=== PATIENT | female | born 1980 | race African-American/Black ===

== ENCOUNTER 2017-06-30 06:42 | Inpatient (IN) | payer MEDICARE, MEDICAID ==
[2017-06-30] MEDS ORDERED: Methocarbamol 1 GM in Sodium Chloride 0.9% 100 ML IVPB SCH (07:15)
[2017-06-30 07:30] LABS: #Basophils 0.1 thou/uL (0.0-0.2); #Eosinphils 0.1 thou/uL (0.0-0.7); #Lymphocytes 4.6 thou/uL (1.20-3.40); #Monocytes 1.3 thou/uL (0.11-0.59); #Neutrophils 6.4 thou/uL (1.40-6.50); %Basophils 1.2 % (0.0-1.0); %Eosinophils 0.9 % (0.0-10.0); %Lymphocytes 36.7 % (21.0-51.0); %Monocytes 10.3 % (0.0-10.0); Hematocrit 44.6 % (36.0-47.0); Mean Platelet Volume 8.6 fL (7.4-10.4); Red Blood Cell (RBC) Count 4.65 mill/uL (4.20-5.40); White Blood Cell (WBC) Count 12.6 thou/uL (4.8-10.8)
[2017-06-30 07:44] LABS: Anion Gap 21 mmol/L (10-20); BUN (Urea Nitrogen) 11 mg/dL (7.0-18.7); Calc. Creatinine Clearance 0 mL/min (70-130); Calcium 8.7 mg/dL (7.8-10.44); Carbon Dioxide 18 mmol/L (22-29); Chloride 94 mmol/L (98-107); Estimated GFR-MDRD 40
[2017-06-30] MEDS ORDERED: Insulin Regular 300 UNITS/3 ML VIAL ONE (09:26)
[2017-06-30] MEDS ORDERED: Acetaminophen 500 MG TAB ONE (09:28)
[2017-06-30] MEDS ORDERED: Sodium Chloride 0.9% 1,000 ML IV PRN ×4 (12:08)
[2017-06-30] MEDS ORDERED: CCU Electrolyte Replacement 1 EACH IVPB ONE (12:08)
[2017-06-30] MEDS ORDERED: NS 0.9% w/ 20 MEQ KCL 1,000 ML IV PRN (12:08)
[2017-06-30] MEDS ORDERED: D5 1/2 NS w/20 mEq KCL 1,000 ML IV PRN (12:08)
[2017-06-30] MEDS ORDERED: Dextrose 5 %-0.45 % NaCl 1,000 ML IV PRN (12:08)
[2017-06-30] MEDS ORDERED: Cyclobenzaprine 10 MG TAB PO PRN (12:14)
[2017-06-30] MEDS ORDERED: Potassium Chloride 40 MEQ in Premix Bag 1 BAG IVPB PRN (12:18)
[2017-06-30] MEDS ORDERED: Magnesium 2 GM/NS 0.9% 100 ML 2 GM in Premix Bag 1 BAG IVPB PRN (12:18)
[2017-06-30] MEDS ORDERED: Potassium Chloride 20 MEQ TAB PO PRN (12:18)
[2017-06-30] MEDS ORDERED: Potassium Phosphate 9 MMOL in Sodium Chloride 0.9% 100 ML IVPB PRN (12:18)
[2017-06-30] MEDS ORDERED: CCU ELECTROLYTE REPLACEMENT PROTOCOL FS PRN (12:18)
[2017-06-30] MEDS ORDERED: Potassium Phosphate 12 MMOL in Sodium Chloride 0.9% 250 ML 250 ML IV PRN (12:18)
[2017-06-30] MEDS ORDERED: Potassium Chloride 40 MEQ in Sodium Chloride 0.9% 250 ML 250 ML IVPB PRN (12:18)
[2017-06-30] MEDS ORDERED: Potassium Phosphate 15 MMOL in Sodium Chloride 0.9% 250 ML 250 ML IV PRN (12:18)
[2017-06-30] MEDS ORDERED: Magnesium Oxide 400 MG TAB PO PRN ×2 (12:18)
[2017-06-30 13:11] LABS: Anion Gap 17 mmol/L (10-20); BUN (Urea Nitrogen) 9 mg/dL (7.0-18.7); Calc. Creatinine Clearance 0 mL/min (70-130); Calcium 8.9 mg/dL (7.8-10.44); Carbon Dioxide 21 mmol/L (22-29); Chloride 97 mmol/L (98-107); Estimated GFR-MDRD 44
[2017-06-30] MEDS: NS 0.9% w/ 20 MEQ KCL 1,000 ML IV PRN ×2 (13:39→15:33)
[2017-06-30 13:49] VITALS: BMI 54.8
[2017-06-30] MEDS: Heparin 5,000 UNITS/ML VIAL SC SCH ×2 (15:33→21:08)
[2017-06-30 17:03] LABS: Anion Gap 11 mmol/L (10-20); BUN (Urea Nitrogen) 8 mg/dL (7.0-18.7); Calc. Creatinine Clearance 123 mL/min (70-130); Calcium 8.3 mg/dL (7.8-10.44); Carbon Dioxide 25 mmol/L (22-29); Chloride 101 mmol/L (98-107); Estimated GFR-MDRD 54
[2017-06-30 17:52] LABS: Hemoglobin A1c 20.1 % (4.0-6.0)
--- NOTE | 2017-06-30 18:15 | HP ---
PRIMARY CARE PHYSICIAN: Stephen Vicente M.D. CHIEF COMPLAINT: Polydipsia. HISTORY OF PRESENT ILLNESS: Ms. Graham is a pleasant 37-year-old lady who was seen at [facility] on 06/30/2017. She was hospitalized at this facility in 04/2017 for diabetes mellitus. She was started on insulin. However, she reported that because of her insurance reasons , she could not get her insulin. She also could not get her Synthroid. She has not been taking the se two medications following discharge. For the last several days, she reports excessive thirst. She also reports frequent urination. She also reports increase in her appetite. She denies any chest pain. She denies any shortness of chiara th. She denies any fevers or chills. She denies any dysuria. She also reports chronic back pain, on and off, 05/24 at its worst. No known aggravating or relievin g factors, not associated with any other symptoms. REVIEW OF SYSTEMS: The following complete review of systems was negative, unless otherwise mentione d in the HPI or below: Constitutional: Weight loss or gain, sense of well-being, ability to conduct usual activities, exer cise tolerance. Skin/Breast: Rash, itching, changes in hair growth or loss, nail changes, breast lumps, tenderness, swelling, nipple discharge. Eyes: Vision, double vision, tearing, blind spots, pain. ENT/Mouth: Headaches (location, time of onset, duration, precipitating factors), vertigo, lighthead edness, injury. Vision, double vision, tearing, blind spots, pain, nose bleeding, colds, obstruction , discharge, dental difficulties, gingival bleeding, dentures, neck stiffness, pain, tenderness, mas ses in thyroid or other areas. Cardiovascular: Precordial pain, substernal distress, palpitations, syncope, dyspnea on exertion, o rthopnea, nocturnal paroxysmal dyspnea, edema, cyanosis, hypertension, heart murmurs, varicosities, phlebitis, claudication. Respiratory: Pain, shortness of breath, wheezing, stridor, cough, hemoptysis, fever or night sweats . Gastrointestinal: Poor appetite, dysphagia, indigestion, abdominal pain, heartburn, eructation, carlos sea, vomiting, hematemesis, jaundice, constipation, or diarrhea, abnormal stools (margaret-colored, kennedy y, bloody, greasy, foul smelling), flatulence, hemorrhoids, recent changes in bowel habits. Genitourinary: Urgency, frequency, dysuria, nocturia, hematuria, polyuria, oliguria, unusual (or ch goran in) color of urine, stones, hesitancy, change in size of stream, dribbling, acute retention or incontinence, libido, potency. Musculoskeletal: Pain, swelling, redness or heat of muscles or joints, limitation, of motion, muscu lar weakness, atrophy, cramps. Neurologic/Psychiatric: Convulsions, paralyses, tremor, incoordination, paresthesias, difficulties with memory of speech, sensory or motor disturbances, or muscular coordination (ataxia, tremor), emo tional problems, anxiety, depression, previous psychiatric care, unusual perceptions, hallucinations . Allergy/Immunologic: Skin rash, anemia, bleeding tendency, polydipsia, polyuria, intolerance to hea t or cold. PAST MEDICAL HISTORY: Significant for hypothyroidism, hypertension, obesity, asthma and diabetes me llitus. PAST SURGICAL HISTORY: Significant for section, thyroidectomy and partial hysterectomy. PSYCHIATRIC HISTORY: Significant for anxiety. SOCIAL HISTORY: The patient uses marijuana. She also smokes less than half a pack of cigarettes a day. She denies alcohol use. FAMILY HISTORY: Significant for multiple members with diabetes mellitus. ALLERGIES: No known drug allergies. CURRENT MEDICATIONS: Irbesartan/hydrochlorothiazide 150/12.5 mg daily, topiramate 50 mg 2 times a d ay, Levemir 25 units subcutaneously daily, which she has not been taking, levothyroxine 50 mcg daily , which she has not been taking. PHYSICAL EXAMINATION: GENERAL: Ms. Graham is awake and alert, not in acute distress. VITAL SIGNS: Blood pressure is 151/119. Pulse is 77. She is breathing at rate of 18, and saturati ng 96% on room air. She is afebrile. She is morbidly obese. EYES: No scleral icterus. No conjunctival pallor. ENT: Dry mucosal membranes, no oropharyngeal erythema or exudates. NECK: Supple, nontender, normal range of movement, trachea is midline. RESPIRATORY: Accessory muscles of breathing are not active. Chest wall movements are symmetric vinayak aterally. LUNGS: Clear to auscultation without wheeze, rhonchi or crepitations. CARDIOVASCULAR: S1 and S2 are heard, regular. LUNGS: Peripheral pulses palpable. No carotid bruit, no pericardial rub. ABDOMEN: Soft, distended, nontender, bowel sounds heard, no hepatomegaly, no splenomegaly. NEUROLOGIC: Cranial nerves II-XII are intact. Deep tendon reflexes are 2+. MUSCULOSKELETAL: Power is 5/5 in all 4 extremities. Normal range of movements at all major extremi ty joints. LYMPHATIC: No cervical lymphadenopathy. SKIN: No rashes or subcutaneous nodules. PSYCHIATRIC: Normal mood, normal affect, patient is oriented to person, place, and time. LABS AND INVESTIGATIONS: Ms. Graham's labs and investigations were reviewed. She has decreased s odium of 129, decreased carbon dioxide of 18, elevated anion gap of 21, elevated creatinine of 1.71, elevated glucose of 678, elevated white count of 12,600, of which 50.9% are neutrophils, normal he moglobin, normal platelet count, and elevated beta hydroxybutyrate of 5.86. ASSESSMENT AND PLAN: Ms. Graham is a pleasant 37-year-old lady who was seen at [facility]. Her problem list includes: 1. Diabetic ketoacidosis. Ms. Graham is currently in diabetic ketoacidosis from noncompliance wi th insulin. She will be admitted to the hospital and treated with intravenous fluids and insulin. 2. Hypertensive urgency: Ms. Graham has elevated blood pressure. She will be monitored in terms of vital signs. She will receive p.r.n. medications for control of blood pressure. 3. Hypothyroidism: Resume Synthroid. She will need to follow up with her primary care provider radha youngblood having her thyroid profile checked. 4. Tobacco abuse: The patient has been counseled regarding tobacco cessation. She will be started on nicotine replacement therapy. 5. Marijuana use: The patient has been counseled regarding cessation of marijuana use. Many thanks for allowing me to participate in your patient's care. Please feel free to contact me w ith any questions or concerns. LEVEL OF RISK: Moderate. LEVEL OF COMPLEXITY: Moderate.
[2017-06-30 20:45] LABS: Anion Gap 9 mmol/L (10-20); BUN (Urea Nitrogen) 7 mg/dL (7.0-18.7); Calc. Creatinine Clearance 149 mL/min (70-130); Carbon Dioxide 24 mmol/L (22-29); Chloride 102 mmol/L (98-107); Estimated GFR-MDRD 67
[2017-06-30] MEDS ORDERED: Dextrose 5% in Water 1,000 ML IV PRN (20:47)
[2017-06-30] MEDS ORDERED: Dextrose 50% Abboject 50 ML SYRINGE IVP PRN (20:47)
[2017-06-30] MEDS ORDERED: Potassium Chloride 20 MEQ TAB PO SCH (21:00)
[2017-06-30] MEDS ORDERED: FLU VACC QS2017-18 36 mo. & older 0.5 ML SYRINGE IM ONE (21:00)
[2017-06-30] MEDS ORDERED: INSULIN GLARGINE HUM REC ANLOG 25 UNIT SQ SCH (21:00)
[2017-06-30] MEDS ORDERED: Insulin Regular 300 UNITS/3 ML VIAL SC SCH (21:00)
[2017-06-30] MEDS: Famotidine 20 MG TAB PO SCH (21:08)
[2017-06-30] MEDS: Insulin Detemir 100 UNITS/ML 25 UNITS in Pre-Filled Syringe SC SCH (21:09)
[2017-06-30] MEDS: Topiramate 100 MG TAB PO SCH (21:10)
[2017-06-30] MEDS: Acetaminophen 325 MG TAB PO PRN (21:10)
[2017-06-30] MEDS: Sodium Chloride 0.9% 1,000 ML IV SCH (21:10)
[2017-06-30 22:13] LABS: Bilirubin Moderate (Negative); Blood, Urine Negative (Negative); Glucose, Urine (Dipstick) 500 mg/dL (Negative); Ketone, Urine 15 mg/dL (Negative); Nitrite Negative (Negative); Protein, Urine (Dipstick) 30 mg/dL (Neg-Trace)
[2017-06-30] MEDS: Insulin Regular 300 UNITS/3 ML VIAL SC PRN (23:55)
[2017-07-01] MEDS: Insulin Regular 300 UNITS/3 ML VIAL SC PRN (05:48)
[2017-07-01] MEDS: Levothyroxine Sodium 125 MCG TAB PO SCH (05:48)
[2017-07-01 06:07] LABS: #Basophils 0.2 thou/uL (0.0-0.2); #Eosinphils 0.2 thou/uL (0.0-0.7); #Lymphocytes 5.3 thou/uL (1.20-3.40); #Monocytes 1.3 thou/uL (0.11-0.59); #Neutrophils 4.9 thou/uL (1.40-6.50); %Basophils 1.8 % (0.0-1.0); %Eosinophils 1.4 % (0.0-10.0); %Lymphocytes 44.6 % (21.0-51.0); %Monocytes 11.1 % (0.0-10.0); Hematocrit 41.3 % (36.0-47.0); Mean Platelet Volume 8.6 fL (7.4-10.4); Red Blood Cell (RBC) Count 4.28 mill/uL (4.20-5.40)
[2017-07-01 06:39] LABS: Anion Gap 9 mmol/L (10-20); BUN (Urea Nitrogen) 7 mg/dL (7.0-18.7); Calc. Creatinine Clearance 155 mL/min (70-130); Calcium 8.3 mg/dL (7.8-10.44); Carbon Dioxide 24 mmol/L (22-29); Chloride 101 mmol/L (98-107); Estimated GFR-MDRD 70; Magnesium 1.5 mg/dL (1.6-2.6)
[2017-07-01] MEDS: Famotidine 20 MG TAB PO SCH ×2 (08:11→20:56)
[2017-07-01] MEDS: Topiramate 100 MG TAB PO SCH ×2 (08:11→20:56)
[2017-07-01] MEDS: Heparin 5,000 UNITS/ML VIAL SC SCH ×3 (08:12→20:56)
[2017-07-01] MEDS: Insulin Detemir 100 UNITS/ML 25 UNITS in Pre-Filled Syringe SC SCH ×2 (08:12→21:34)
[2017-07-01] MEDS: Nicotine 14 MG PATCH TD SCH (08:33)
[2017-07-01] MEDS ORDERED: Dextrose 5% in Water 1,000 ML IV PRN (09:31)
[2017-07-01] MEDS ORDERED: Dextrose 50% Abboject 50 ML SYRINGE SLOW IVP PRN (09:31)
[2017-07-01] MEDS: HumaLOG 300 UNITS/3 ML VIAL SC PRN ×3 (11:26→21:35)
[2017-07-01] MEDS: Sodium Chloride 0.9% 1,000 ML IV SCH (11:26)
--- NOTE | 2017-07-01 15:44 | PDOC.PN ---
- Subjective Encounter Start Date: 07/01/17 Encounter Start Time: 08:20 Pt seen for followup re: hypokalemia. Denies chest pain, shortness of breath, fevers or chills. No nausea or vomiting. - Objective MAR Reviewed: Yes Vital Signs & Weight: Vital Signs (12 hours) Temp Pulse Resp BP Pulse Ox 07/01/17 12:45 97.6 F 78 19 07/01/17 11:50 97.6 F 78 19 123/85 95 07/01/17 07:45 98.0 F 77 18 99 07/01/17 07:05 97.5 F L 78 20 136/100 H 97 Weight Admit Weight 300 lb 1.6 oz Weight 300 lb 1.6 oz I&O: 06/30/17 07/01/17 07/02/17 06:59 06:59 06:59 Intake Total 5379.4 480 Output Total 750 Balance 4629.4 480 Result Diagrams: 07/01/17 04:47 07/01/17 04:47 Additional Labs: Accuchecks 07/01/17 07/01/17 06/30/17 10:41 05:37 23:52 POC Glucose 315 H 295 H 264 H 06/30/17 06/30/17 06/30/17 20:19 19:01 18:10 POC Glucose 148 H 167 H 180 H 06/30/17 06/30/17 17:01 16:05 POC Glucose 211 H 231 H EKG Reviewed by me: Yes (Tele: NSR) Phys Exam - Physical Examination Constitutional: NAD HEENT: PERRLA, moist MMs, sclera anicteric, oral pharynx no lesions Neck: supple Respiratory: no wheezing, no rales, no rhonchi, clear to auscultation bilateral Cardiovascular: RRR, no rub Gastrointestinal: soft, non-tender, positive bowel sounds distention Musculoskeletal: pulses present Neurological: non-focal, normal sensation, moves all 4 limbs Lymphatic: no nodes Psychiatric: normal affect, A&O x 3 Dx/Plan (1) Hypokalemia Code(s): E87.6 - HYPOKALEMIA Status: Acute (2) Hyponatremia Code(s): E87.1 - HYPO-OSMOLALITY AND HYPONATREMIA Status: Acute (3) DM2 (diabetes mellitus, type 2) Status: Chronic (4) Hypertension Code(s): I10 - ESSENTIAL (PRIMARY) HYPERTENSION Status: Chronic (5) Hypothyroidism Code(s): E03.9 - HYPOTHYROIDISM, UNSPECIFIED Status: Chronic (6) Tobacco abuse Code(s): Z72.0 - TOBACCO USE Status: Chronic (7) Marijuana use Code(s): F12.90 - CANNABIS USE, UNSPECIFIED, UNCOMPLICATED Status: Chronic (8) Hyponatremia Code(s): E87.1 - HYPO-OSMOLALITY AND HYPONATREMIA Status: Acute (9) CHAKA (acute kidney injury) Code(s): N17.9 - ACUTE KIDNEY FAILURE, UNSPECIFIED Status: Acute (10) DKA (diabetic ketoacidoses) Code(s): E13.10 - OTH DIABETES MELLITUS WITH KETOACIDOSIS WITHOUT COMA Status : Resolved - Plan out of bed/ambulate * . Replace potassium. Recheck electrolytes. Continue insulin sliding scale, levemir, accuchecks, 1500 kcal diet with high protein supplements. DKA resolved. Continue synthroid. Check thyroid profile in 6 weeks. Monitor vital signs and titrate antihypertensives as needed. Review of Systems - Review of Systems Constitutional: negative: Fever, Chills, Sweats, Weakness, Malaise Respiratory: negative: Cough, Dry, Shortness of Breath, Hemoptysis, SOB with Excertion, Pleuritic Pain, Sputum, Wheezing Cardiovascular: negative: Chest Pain, Palpitations, Orthopnea, Paroxysmal Noc. Dyspnea, Edema, Light Headedness Gastrointestinal: negative: Nausea, Vomiting, Abdominal Pain, Diarrhea, Constipation, Melena, Hematochezia Genitourinary: negative: Dysuria, Frequency, Incontinence, Hematuria, Retention - Medications/Allergies Allergies/Adverse Reactions: Allergies Allergy/AdvReac Type Severity Reaction Status Date / Time No Known Drug Allergies Allergy Verified 05/03/17 06:46 Medications: Current Medications Acetaminophen (Tylenol) 650 mg PO Q4H PRN PRN Reason: Headache/Fever or Pain Last Admin: 06/30/17 21:10 Dose: 650 mg Cyclobenzaprine HCl (Flexeril) 10 mg PO TID PRN PRN Reason: Muscle Spasm Dextrose/Water (Dextrose 50%) 25 gm SLOW IVP PRN PRN PRN Reason: Hypoglycemia Famotidine (Pepcid) 20 mg PO BID [facility] Last Admin: 07/01/17 08:11 Dose: 20 mg Glucagon (Glucagon) 1 mg IM PRN PRN PRN Reason: Hypoglycemia Heparin Sodium (Porcine) (Heparin) 5,000 units SC TID [facility] Last Admin: 07/01/17 14:34 Dose: 5,000 units Hydralazine HCl (Apresoline) 10 mg SLOW IVP Q6H PRN PRN Reason: SBP Greater Than 170 Insulin Detemir 25 units/ (Miscellaneous Medication) 0.25 mls @ 0 mls/hr SC BID [facility] Last Admin: 07/01/17 08:12 Dose: 0.25 mls Sodium Chloride (Normal Saline 0.9%) 1,000 mls @ 75 mls/hr IV .[id number] [facility] Last Admin: 07/01/17 11:26 Dose: 1,000 mls Dextrose/Water (D5w) 1,000 mls @ 0 mls/hr IV .Q0M PRN; As Directed PRN Reason: Hypoglycemia Insulin Human Lispro (Humalog) 0 units SC .MODERATE SLIDING SC PRN PRN Reason: Moderate Correctional Scale Last Admin: 07/01/17 11:26 Dose: 8 unit Insulin Human Regular (Humulin R) 0 units SC .MODERATE SLIDING SC PRN; Protocol PRN Reason: MODERATE SLIDING SCALE Last Admin: 07/01/17 05:48 Dose: 6 unit Levothyroxine Sodium (Synthroid) 125 mcg PO 0600 [facility] Last Admin: 07/01/17 05:48 Dose: 125 mcg Nicotine (Nicoderm Patch) 14 mg TD QAM [facility] Last Admin: 07/01/17 08:33 Dose: Not Given Topiramate (Topamax) 50 mg PO BID [facility] Last Admin: 07/01/17 08:11 Dose: 50 mg
[2017-07-01] MEDS: Benzonatate 100 MG CAP PO PRN (21:34)
[2017-07-02] MEDS: Sodium Chloride 0.9% 1,000 ML IV SCH ×2 (01:56→13:03)
[2017-07-02 04:44] LABS: Anion Gap 10 mmol/L (10-20); BUN (Urea Nitrogen) 5 mg/dL (7.0-18.7); Calc. Creatinine Clearance 156 mL/min (70-130); Calcium 8.7 mg/dL (7.8-10.44); Carbon Dioxide 25 mmol/L (22-29); Chloride 100 mmol/L (98-107); Estimated GFR-MDRD 71
[2017-07-02 05:10] LABS: Band 5 % (5-11); Hematocrit 42.1 % (36.0-47.0); Mean Platelet Volume 8.5 fL (7.4-10.4); Neutrophil 51 % (42-75); Red Blood Cell (RBC) Count 4.37 mill/uL (4.20-5.40); White Blood Cell (WBC) Count 7.2 thou/uL (4.8-10.8)
[2017-07-02] MEDS: Levothyroxine Sodium 125 MCG TAB PO SCH (05:32)
[2017-07-02] MEDS: Benzonatate 100 MG CAP PO PRN ×2 (05:33→21:17)
[2017-07-02] MEDS: HumaLOG 300 UNITS/3 ML VIAL SC PRN ×4 (05:34→21:19)
[2017-07-02] MEDS ORDERED: HYDROcodone/Acetaminophen 5/325 mg Tablet PO PRN (07:46)
[2017-07-02] MEDS ORDERED: Ondansetron HCl/PF 4 MG/2 ML Vial IVP PRN (07:46)
[2017-07-02] MEDS ORDERED: Mag-Al 1200 mg/1200 mg/30 ML UDCUP PO PRN (07:46)
[2017-07-02] MEDS ORDERED: Artificial Tears 18 DROP/0.9 ML EA EYE PRN (07:46)
[2017-07-02] MEDS ORDERED: Chloraseptic Spray 180 ml Bottle PO PRN (07:46)
[2017-07-02] MEDS ORDERED: Temazepam 15 MG CAP PO PRN (07:46)
[2017-07-02] MEDS ORDERED: Eucerin (Mineral Oil/Petrolatum,White) 30 gm Jar TOP PRN (07:46)
[2017-07-02] MEDS ORDERED: Loperamide HCl 2 MG CAP PO PRN (07:46)
[2017-07-02] MEDS ORDERED: Sodium Chloride 0.65% Nasal 44 ML BOT EA NARE PRN (07:46)
[2017-07-02] MEDS ORDERED: Senokot 8.6 MG TAB PO PRN (07:46)
[2017-07-02] MEDS ORDERED: Milk Of Magnesia 30 ML UDCUP PO PRN (07:46)
[2017-07-02] MEDS ORDERED: Loratadine 10 MG TAB PO PRN (07:46)
[2017-07-02] MEDS ORDERED: Ondansetron ODT 4 MG TAB PO PRN (07:46)
[2017-07-02] MEDS: Topiramate 100 MG TAB PO SCH ×2 (08:50→21:18)
[2017-07-02] MEDS: Famotidine 20 MG TAB PO SCH ×2 (08:50→21:18)
[2017-07-02] MEDS: Heparin 5,000 UNITS/ML VIAL SC SCH ×3 (08:53→21:14)
[2017-07-02] MEDS: Insulin Detemir 100 UNITS/ML 35 UNITS in Pre-Filled Syringe 1 EACH SC SCH (09:42)
[2017-07-02] MEDS: Nicotine 14 MG PATCH TD SCH (09:46)
[2017-07-02 10:00] LABS: Magnesium 1.7 mg/dL (1.6-2.6); Phosphorus 2.4 mg/dL (2.3-4.7)
--- NOTE | 2017-07-02 10:35 | PDOC.PN ---
- Subjective Encounter Start Date: 07/02/17 Encounter Start Time: 08:30 -: old records requested/rev Patient seen and examined. No new complaints. No overnight events - Objective MAR Reviewed: Yes Vital Signs & Weight: Vital Signs (12 hours) Temp Pulse Resp BP Pulse Ox 07/02/17 08:00 98.6 F 75 16 07/02/17 07:55 98.6 F 75 16 122/87 96 07/02/17 04:00 98.0 F 83 20 131/92 H 98 07/02/17 00:00 98.0 F 80 20 132/87 98 Weight Admit Weight 300 lb 1.6 oz Weight 300 lb 1.6 oz I&O: 07/01/17 07/02/17 07/03/17 06:59 06:59 06:59 Intake Total 5379.4 1979 Output Total 750 Balance 4629.4 1979 Result Diagrams: 07/02/17 03:29 07/02/17 03:29 Additional Labs: Accuchecks 07/02/17 07/01/17 07/01/17 04:30 19:20 16:02 POC Glucose 370 H 372 H 313 H 07/01/17 10:41 POC Glucose 315 H Phys Exam - Physical Examination Constitutional: NAD HEENT: PERRLA, moist MMs, sclera anicteric Neck: no JVD, supple Respiratory: no wheezing, no rales, no rhonchi Cardiovascular: RRR, no significant murmur, no rub Gastrointestinal: soft, non-tender, no distention, positive bowel sounds Musculoskeletal: no edema, pulses present Neurological: non-focal, normal sensation, moves all 4 limbs Lymphatic: no nodes Psychiatric: normal affect, A&O x 3 Skin: no rash, normal turgor Dx/Plan (1) CHAKA (acute kidney injury) Code(s): N17.9 - ACUTE KIDNEY FAILURE, UNSPECIFIED Status: Acute (2) Hypokalemia Code(s): E87.6 - HYPOKALEMIA Status: Acute (3) Hyponatremia Code(s): E87.1 - HYPO-OSMOLALITY AND HYPONATREMIA Status: Acute (4) Hypertension Code(s): I10 - ESSENTIAL (PRIMARY) HYPERTENSION Status: Chronic (5) Hypothyroidism Code(s): E03.9 - HYPOTHYROIDISM, UNSPECIFIED Status: Chronic (6) Marijuana use Code(s): F12.90 - CANNABIS USE, UNSPECIFIED, UNCOMPLICATED Status: Chronic (7) Morbid obesity Code(s): E66.01 - MORBID (SEVERE) OBESITY DUE TO EXCESS CALORIES Status: Chronic (8) Tobacco abuse Code(s): Z72.0 - TOBACCO USE Status: Chronic (9) DKA (diabetic ketoacidoses) Code(s): E13.10 - OTH DIABETES MELLITUS WITH KETOACIDOSIS WITHOUT COMA Status : Resolved - Plan cont current plan of care * will increase dose of insulin and adjust dose today * all elctrolytes are now OK, will replace potassium today * DC IVF * medication reviewed as below * symptomatic treatment * plan for discharge tomorrow. Review of Systems - Review of Systems ENT: negative: Ear Pain, Ear Discharge, Nose Pain, Nose Discharge, Nose Congestion, Mouth Pain, Mouth Swelling, Throat Pain, Throat Swelling, Other Respiratory: negative: Cough, Dry, Shortness of Breath, Hemoptysis, SOB with Excertion, Pleuritic Pain, Sputum, Wheezing Cardiovascular: negative: Chest Pain, Palpitations, Orthopnea, Paroxysmal Noc. Dyspnea, Edema, Light Headedness, Other Gastrointestinal: negative: Nausea, Vomiting, Abdominal Pain, Diarrhea, Constipation, Melena, Hematochezia, Other Genitourinary: negative: Dysuria, Frequency, Incontinence, Hematuria, Retention , Other Musculoskeletal: negative: Neck Pain, Shoulder Pain, Arm Pain, Back Pain, Hand Pain, Leg Pain, Foot Pain, Other - Medications/Allergies Allergies/Adverse Reactions: Allergies Allergy/AdvReac Type Severity Reaction Status Date / Time No Known Drug Allergies Allergy Verified 05/03/17 06:46 Medications: Current Medications Acetaminophen (Tylenol) 650 mg PO Q4H PRN PRN Reason: Headache/Fever or Pain Last Admin: 06/30/17 21:10 Dose: 650 mg Hydrocodone Bitart/Acetaminophen ([place] 5/325) 1 tab PO Q4H PRN PRN Reason: Moderate Pain (4-6) Al Hydroxide/Mg Hydroxide (Maalox) 15 ml PO Q4H PRN PRN Reason: Heartburn or Indigestion Artificial Tears (Tears Naturale) 0 drop EA EYE PRN PRN PRN Reason: Dry Eyes Benzonatate (Tessalon) 100 mg PO Q8H PRN PRN Reason: Cough Last Admin: 07/02/17 05:33 Dose: 100 mg Cyclobenzaprine HCl (Flexeril) 10 mg PO TID PRN PRN Reason: Muscle Spasm Dextrose/Water (Dextrose 50%) 25 gm SLOW IVP PRN PRN PRN Reason: Hypoglycemia Famotidine (Pepcid) 20 mg PO BID [facility] Last Admin: 07/02/17 08:50 Dose: 20 mg Glucagon (Glucagon) 1 mg IM PRN PRN PRN Reason: Hypoglycemia Guaifenesin (Robitussin Sf) 200 mg PO Q4H PRN PRN Reason: Cough Heparin Sodium (Porcine) (Heparin) 5,000 units SC TID [facility] Last Admin: 07/02/17 08:53 Dose: 5,000 units Hydralazine HCl (Apresoline) 10 mg SLOW IVP Q6H PRN PRN Reason: SBP Greater Than 170 Sodium Chloride (Normal Saline 0.9%) 1,000 mls @ 75 mls/hr IV .[id number] [facility] Last Admin: 07/02/17 01:56 Dose: 1,000 mls Dextrose/Water (D5w) 1,000 mls @ 0 mls/hr IV .Q0M PRN; As Directed PRN Reason: Hypoglycemia Insulin Detemir 35 units/ (Miscellaneous Medication) 0.35 mls @ 0 mls/hr SC HS [facility] Insulin Detemir 35 units/ (Miscellaneous Medication) 0.35 mls @ 0 mls/hr SC QAM [facility] Last Admin: 07/02/17 09:42 Dose: 0.35 mls Insulin Human Lispro (Humalog) 0 units SC .MODERATE SLIDING SC PRN PRN Reason: Moderate Correctional Scale Last Admin: 07/02/17 05:34 Dose: 10 unit Insulin Human Lispro (Humalog) 0 units SC .BEDTIME SLIDING SC PRN; Protocol PRN Reason: BEDTIME SLIDING SCALE Last Admin: 07/01/17 21:35 Dose: 5 unit Insulin Human Regular (Humulin R) 0 units SC .MODERATE SLIDING SC PRN; Protocol PRN Reason: MODERATE SLIDING SCALE Last Admin: 07/01/17 05:48 Dose: 6 unit Levothyroxine Sodium (Synthroid) 125 mcg PO 0600 [facility] Last Admin: 07/02/17 05:32 Dose: 125 mcg Loperamide HCl (Imodium) 2 mg PO PRN PRN PRN Reason: Diarrhea/Loose Stools Loratadine (Claritin) 10 mg PO DAILYPRN PRN PRN Reason: Sinus Symptoms Magnesium Hydroxide (Milk Of Magnesium) 30 ml PO DAILYPRN PRN PRN Reason: Constipation Mineral Oil/White Petrolatum (Eucerin Cream) 0 gm TOP BIDPRN PRN PRN Reason: Dry Skin Nicotine (Nicoderm Patch) 14 mg TD QAM [facility] Last Admin: 07/02/17 09:46 Dose: Not Given Ondansetron HCl (Zofran Odt) 4 mg PO Q6H PRN PRN Reason: Nausea/Vomiting Ondansetron HCl (Zofran) 4 mg IVP Q6H PRN PRN Reason: Nausea/Vomiting Phenol (Chloraseptic [place] 180 Ml Bot) 0 ml PO PRN PRN PRN Reason: Sore Throat Senna (Senokot) 2 tab PO HSPRN PRN PRN Reason: Constipation Sodium Chloride ([place] Nasal [place] 0.65%) 0 ml EA NARE QIDPRN PRN PRN Reason: Nasal Congestion Sodium Chloride (Flush - Normal Saline) 10 ml IVF Q12HR [facility] Last Admin: 07/02/17 09:50 Dose: Not Given Sodium Chloride (Flush - Normal Saline) 10 ml IVF PRN PRN PRN Reason: Saline Flush Temazepam (Restoril) 15 mg PO HSPRN PRN PRN Reason: Insomnia Topiramate (Topamax) 50 mg PO BID [facility] Last Admin: 07/02/17 08:50 Dose: 50 mg
[2017-07-02] MEDS: Diabetic Tussin 200 MG/10 ML UDCUP PO PRN ×2 (11:31→21:17)
[2017-07-02] MEDS ORDERED: Insulin Detemir 100 UNITS/ML 35 UNITS in Pre-Filled Syringe 1 EACH SC SCH (21:00)
[2017-07-03] MEDS: Sodium Chloride 0.9% 1,000 ML IV SCH ×2 (02:19→02:23)
[2017-07-03] MEDS: Acetaminophen 325 MG TAB PO PRN (02:23)
[2017-07-03 04:43] LABS: #Basophils 0.1 thou/uL (0.0-0.2); #Eosinphils 0.1 thou/uL (0.0-0.7); #Lymphocytes 2.1 thou/uL (1.20-3.40); #Monocytes 0.9 thou/uL (0.11-0.59); #Neutrophils 3.3 thou/uL (1.40-6.50); %Eosinophils 0.9 % (0.0-10.0); %Lymphocytes 32.3 % (21.0-51.0); %Monocytes 14.4 % (0.0-10.0); Hematocrit 40.4 % (36.0-47.0); Mean Platelet Volume 8.6 fL (7.4-10.4); Red Blood Cell (RBC) Count 4.19 mill/uL (4.20-5.40); White Blood Cell (WBC) Count 6.5 thou/uL (4.8-10.8)
[2017-07-03 05:01] LABS: Calcium 8.5 mg/dL (7.8-10.44); Chloride 104 mmol/L (98-107)
[2017-07-03 05:10] LABS: BUN (Urea Nitrogen) 4 mg/dL (7.0-18.7); Calc. Creatinine Clearance 173 mL/min (70-130); Carbon Dioxide 25 mmol/L (22-29); Estimated GFR-MDRD 80
[2017-07-03 05:16] LABS: Anion Gap 10 mmol/L (10-20)
[2017-07-03] MEDS: Levothyroxine Sodium 125 MCG TAB PO SCH (06:26)
[2017-07-03] MEDS ORDERED: Potassium Chloride 20 MEQ TAB PO SCH (07:15)
[2017-07-03] MEDS: Topiramate 100 MG TAB PO SCH (08:54)
[2017-07-03] MEDS: Heparin 5,000 UNITS/ML VIAL SC SCH ×2 (08:54→16:51)
[2017-07-03] MEDS: Nicotine 14 MG PATCH TD SCH (08:55)
[2017-07-03] MEDS: Famotidine 20 MG TAB PO SCH (08:55)
[2017-07-03] MEDS: Insulin Detemir 100 UNITS/ML 35 UNITS in Pre-Filled Syringe 1 EACH SC SCH (09:29)
--- NOTE | 2017-07-03 11:31 | PDOC.PN ---
- Subjective Encounter Start Date: 07/03/17 Encounter Start Time: 08:45 Patient seen and examined. No new complaints. No overnight events - Objective MAR Reviewed: Yes Vital Signs & Weight: Vital Signs (12 hours) Temp Pulse Resp BP Pulse Ox 07/03/17 08:23 99.2 F 80 16 153/98 H 93 L 07/03/17 08:00 99.2 F 80 16 93 L Weight Admit Weight 300 lb 1.6 oz Weight 300 lb 1.6 oz I&O: 07/02/17 07/03/17 07/04/17 06:59 06:59 06:59 Intake Total 1979 1620 240 Balance 1979 1620 240 Result Diagrams: 07/03/17 03:43 07/03/17 03:43 Additional Labs: Accuchecks 07/03/17 07/02/17 07/02/17 05:23 20:58 16:10 POC Glucose 156 H 268 H 220 H 07/02/17 11:22 POC Glucose 301 H Phys Exam - Physical Examination Constitutional: NAD HEENT: PERRLA, moist MMs, sclera anicteric Neck: no JVD, supple Respiratory: no wheezing, no rales, no rhonchi Cardiovascular: RRR, no significant murmur, no rub Gastrointestinal: soft, non-tender, no distention, positive bowel sounds Musculoskeletal: no edema, pulses present Neurological: non-focal, normal sensation, moves all 4 limbs Psychiatric: normal affect, A&O x 3 Skin: no rash, normal turgor Dx/Plan (1) CHAKA (acute kidney injury) Code(s): N17.9 - ACUTE KIDNEY FAILURE, UNSPECIFIED Status: Acute (2) Hypokalemia Code(s): E87.6 - HYPOKALEMIA Status: Acute (3) Hyponatremia Code(s): E87.1 - HYPO-OSMOLALITY AND HYPONATREMIA Status: Acute (4) Hypertension Code(s): I10 - ESSENTIAL (PRIMARY) HYPERTENSION Status: Chronic (5) Hypothyroidism Code(s): E03.9 - HYPOTHYROIDISM, UNSPECIFIED Status: Chronic (6) Marijuana use Code(s): F12.90 - CANNABIS USE, UNSPECIFIED, UNCOMPLICATED Status: Chronic (7) Morbid obesity Code(s): E66.01 - MORBID (SEVERE) OBESITY DUE TO EXCESS CALORIES Status: Chronic (8) Tobacco abuse Code(s): Z72.0 - TOBACCO USE Status: Chronic (9) DKA (diabetic ketoacidoses) Code(s): E13.10 - OTH DIABETES MELLITUS WITH KETOACIDOSIS WITHOUT COMA Status : Resolved - Plan cont current plan of care, plan discussed w/ family * medication reviewed as below * symptomatic treatment * see discharge juli. Review of Systems - Review of Systems ENT: negative: Ear Pain, Ear Discharge, Nose Pain, Nose Discharge, Nose Congestion, Mouth Pain, Mouth Swelling, Throat Pain, Throat Swelling, Other Respiratory: negative: Cough, Dry, Shortness of Breath, Hemoptysis, SOB with Excertion, Pleuritic Pain, Sputum, Wheezing Cardiovascular: negative: Chest Pain, Palpitations, Orthopnea, Paroxysmal Noc. Dyspnea, Edema, Light Headedness, Other Gastrointestinal: negative: Nausea, Vomiting, Abdominal Pain, Diarrhea, Constipation, Melena, Hematochezia, Other Genitourinary: negative: Dysuria, Frequency, Incontinence, Hematuria, Retention , Other Musculoskeletal: negative: Neck Pain, Shoulder Pain, Arm Pain, Back Pain, Hand Pain, Leg Pain, Foot Pain, Other - Medications/Allergies Allergies/Adverse Reactions: Allergies Allergy/AdvReac Type Severity Reaction Status Date / Time No Known Drug Allergies Allergy Verified 05/03/17 06:46 Medications: Current Medications Acetaminophen (Tylenol) 650 mg PO Q4H PRN PRN Reason: Headache/Fever or Pain Last Admin: 07/03/17 02:23 Dose: 650 mg Hydrocodone Bitart/Acetaminophen ([place] 5/325) 1 tab PO Q4H PRN PRN Reason: Moderate Pain (4-6) Last Admin: 07/02/17 12:35 Dose: 1 tab Al Hydroxide/Mg Hydroxide (Maalox) 15 ml PO Q4H PRN PRN Reason: Heartburn or Indigestion Artificial Tears (Tears Naturale) 0 drop EA EYE PRN PRN PRN Reason: Dry Eyes Benzonatate (Tessalon) 100 mg PO Q8H PRN PRN Reason: Cough Last Admin: 07/02/17 21:17 Dose: 100 mg Cyclobenzaprine HCl (Flexeril) 10 mg PO TID PRN PRN Reason: Muscle Spasm Dextrose/Water (Dextrose 50%) 25 gm SLOW IVP PRN PRN PRN Reason: Hypoglycemia Famotidine (Pepcid) 20 mg PO BID [facility] Last Admin: 07/03/17 08:55 Dose: 20 mg Glucagon (Glucagon) 1 mg IM PRN PRN PRN Reason: Hypoglycemia Guaifenesin (Robitussin Sf) 200 mg PO Q4H PRN PRN Reason: Cough Last Admin: 07/02/17 21:17 Dose: 200 mg Heparin Sodium (Porcine) (Heparin) 5,000 units SC TID [facility] Last Admin: 07/03/17 08:54 Dose: 5,000 units Hydralazine HCl (Apresoline) 10 mg SLOW IVP Q6H PRN PRN Reason: SBP Greater Than 170 Dextrose/Water (D5w) 1,000 mls @ 0 mls/hr IV .Q0M PRN; As Directed PRN Reason: Hypoglycemia Insulin Detemir 35 units/ (Miscellaneous Medication) 0.35 mls @ 0 mls/hr SC HS [facility] Last Admin: 07/02/17 21:18 Dose: 0.35 mls Insulin Detemir 35 units/ (Miscellaneous Medication) 0.35 mls @ 0 mls/hr SC QAM [facility] Last Admin: 07/03/17 09:29 Dose: 0.35 mls Insulin Human Lispro (Humalog) 0 units SC .MODERATE SLIDING SC PRN PRN Reason: Moderate Correctional Scale Last Admin: 07/02/17 16:40 Dose: 4 unit Insulin Human Lispro (Humalog) 0 units SC .BEDTIME SLIDING SC PRN; Protocol PRN Reason: BEDTIME SLIDING SCALE Last Admin: 07/02/17 21:19 Dose: 3 unit Insulin Human Regular (Humulin R) 0 units SC .MODERATE SLIDING SC PRN; Protocol PRN Reason: MODERATE SLIDING SCALE Last Admin: 07/01/17 05:48 Dose: 6 unit Levothyroxine Sodium (Synthroid) 125 mcg PO 0600 [facility] Last Admin: 07/03/17 06:26 Dose: 125 mcg Loperamide HCl (Imodium) 2 mg PO PRN PRN PRN Reason: Diarrhea/Loose Stools Loratadine (Claritin) 10 mg PO DAILYPRN PRN PRN Reason: Sinus Symptoms Magnesium Hydroxide (Milk Of Magnesium) 30 ml PO DAILYPRN PRN PRN Reason: Constipation Mineral Oil/White Petrolatum (Eucerin Cream) 0 gm TOP BIDPRN PRN PRN Reason: Dry Skin Nicotine (Nicoderm Patch) 14 mg TD QAM [facility] Last Admin: 07/03/17 08:55 Dose: Not Given Ondansetron HCl (Zofran Odt) 4 mg PO Q6H PRN PRN Reason: Nausea/Vomiting Ondansetron HCl (Zofran) 4 mg IVP Q6H PRN PRN Reason: Nausea/Vomiting Phenol (Chloraseptic [place] 180 Ml Bot) 0 ml PO PRN PRN PRN Reason: Sore Throat Senna (Senokot) 2 tab PO HSPRN PRN PRN Reason: Constipation Sodium Chloride ([place] Nasal [place] 0.65%) 0 ml EA NARE QIDPRN PRN PRN Reason: Nasal Congestion Sodium Chloride (Flush - Normal Saline) 10 ml IVF Q12HR [facility] Last Admin: 07/02/17 21:18 Dose: Not Given Sodium Chloride (Flush - Normal Saline) 10 ml IVF PRN PRN PRN Reason: Saline Flush Temazepam (Restoril) 15 mg PO HSPRN PRN PRN Reason: Insomnia Topiramate (Topamax) 50 mg PO BID [facility] Last Admin: 07/03/17 08:54 Dose: 50 mg
[2017-07-03] MEDS: HumaLOG 300 UNITS/3 ML VIAL SC PRN (12:49)
--- NOTE | 2017-07-03 13:12 | DIS ---
DATE OF ADMISSION: 06/30/2017 DATE OF DISCHARGE: 07/03/2017 PRIMARY CARE PHYSICIAN: Candie Tran DISCHARGE DISPOSITION: Home. PRIMARY DISCHARGE DIAGNOSES: 1. Diabetes ketoacidosis due to medication noncompliance, resolved. 2. Acute kidney failure, improved. 3. Abnormal electrolytes, corrected. SECONDARY DISCHARGE DIAGNOSES: Diabetes type 2, insulin requiring; hypertension; hypothyroidism; mo rbid obesity with BMI of 54; tobacco and marijuana abuse. PRIMARY PROCEDURE/OPERATION: None. RADIOLOGICAL INVESTIGATION: None. SIGNIFICANT LABORATORY: WBC 6.5, hemoglobin 13.9, platelets 163. Sodium 136, creatinine 0.95, calc ium 8.5. Urinalysis, ketones present, serum ketones 0.24. Urine culture negative. DISCHARGE MEDICATIONS: Levemir insulin 35 units subcu b.i.d., Flexeril 10 mg t.i.d. p.r.n., Pepcid 20 mg p.o. b.i.d., irbesartan with hydrochlorothiazide one tablet p.o. daily, lisinopril 5 mg p.o. d aily, Synthroid 125 mcg p.o. daily, topiramate 50 mg p.o. b.i.d., metformin 500 mg p.o. t.i.d. CONTRAINDICATIONS: None. CODE STATUS: FULL CODE. INPATIENT CONSULTANTS: None. ALLERGIES: No known drug allergy. DISCHARGE PLAN: Post hospital, the patient will follow up with primary care physician. HOSPITAL COURSE: This is a 37-year-old female, who was admitted by Dr. Radford on 06/30/2017. This p atient was admitted for DKA. She was not able to get her Levemir insulin, so that might have precip itated her DKA. Patient was admitted to [facility] and she was treated with diabetic ketoacidosis protocol treatment. Her DKA was resolved, and subsequently, she was transferred to medical floor. While in hospital, we al so corrected abnormal electrolytes. We provided patient education about diabetes and compliance wit h her treatment. Overall, this patient is medically stable for discharge today. The patient is seen and examined at bedside today. Please see my progress note from today for further details. Patient was given instruction to monitor her blood sugar as well as vitals and see primary care phys ician for further adjustment of therapy.
[2017-07-03 16:05] VITALS: BP 142/87; TEMP 99.7
[2017-07-03] MEDS: Diabetic Tussin 200 MG/10 ML UDCUP PO PRN (16:11)
== END 2017-07-03 17:18 | disposition home or self-care (01) | DRG 638 ==
LOC: ERS 06:42 → IMCU/EMU 11:31 → T4-A 07-01 12:33
PROVIDERS: ADMIT Internal Medicine; ATTEND Internal Medicine
DX: E11.10 Type 2 diabetes mellitus with ketoacidosis without coma (principal); Z68.43 Body mass index [BMI] 50.0-59.9, adult; N17.9 Acute kidney failure, unspecified; E87.1 Hypo-osmolality and hyponatremia; Z79.4 Long term (current) use of insulin; E66.01 Morbid (severe) obesity due to excess calories; E89.0 Postprocedural hypothyroidism; E87.6 Hypokalemia; I16.0 Hypertensive urgency; F12.10 Cannabis abuse, uncomplicated; F17.210 Nicotine dependence, cigarettes, uncomplicated; Z91.19 Patient's noncompliance with other medical treatment and regimen; Z83.3 Family history of diabetes mellitus
CPT/HCPCS: 36415; 36416; 80048; 81003; 81015; 82010; 83036; 83735; 84100; 84703; 85025; 87086; 96361; 96365; 96367; 96376; A4216; J1644; J1815; J2800; J7050

== ENCOUNTER 2022-08-03 07:13 | Emergency (ER) | payer MEDICARE, OTHER | END 2022-08-03 09:11 | disposition home or self-care (01) | LOC: ERS 07:13 | DX: B34.9 Viral infection, unspecified (principal); E11.9 Type 2 diabetes mellitus without complications; E03.9 Hypothyroidism, unspecified; I10 Essential (primary) hypertension; E66.9 Obesity, unspecified; Z20.822 Contact with and (suspected) exposure to COVID-19 | CPT/HCPCS: 87804 ×2; U0003; U0005; 99283 ==